=== PATIENT | male | born 1995 | race Caucasian/White ===

== ENCOUNTER 2021-08-19 04:04 | Emergency (ER) | payer OTHER, SELFPAY ==
[2021-08-19 04:06] VITALS: BP 165/106; PULSE 120; RESP 29; TEMP 36; O2SAT 100; BMI 32.5
--- NOTE | 2021-08-19 04:12 | RAD_ITS ---
STUDY: X-RAY CHEST REASON FOR EXAM: Male, 25 years old. Left-sided chest pain TECHNIQUE: PA and lateral views of the chest. COMPARISON: None. FINDINGS: The lungs are clear and expanded. There is no demonstrated pleural abnormality. Normal size heart. Normal mediastinum and cole. Normal visualized pulmonary arteries. Normal visualized aortic arch and descending thoracic aorta. Normal visualized thoracic spine. Normal visualized ribs, clavicles, and shoulders. There is no demonstrated abnormality of the visualized soft tissue structures of the upper abdomen. RAD/Chest PA and Lateral IMPRESSION: Normal x-ray examination of the chest. Electronically Signed: Melquiades Perdue MD at 4:43 EDT Tel , Service support ,
--- NOTE | 2021-08-19 04:12 | EKG12_ITS ---
Test Reason : REPEAT CP Blood Pressure : / mmHG Vent. Rate : 076 BPM Atrial Rate : 076 BPM P-R Int : 116 ms QRS Dur : 104 ms QT Int : 384 ms P-R-T Axes : 018 035 -01 degrees QTc Int : 432 ms Normal sinus rhythm Nonspecific ST and T wave abnormality Abnormal ECG Confirmed by JOVANY CHINCHILLA, ALEXANDRO ([id number]), publishing editor PERRY SHAH ([id number]) on 08/20/2021 8:59:32 AM Referred By: MARY Confirmed By:ALEXANDRO MANZO MD
--- NOTE | 2021-08-19 04:13 | EX.ED.DYSGE1 ---
HPI History of Present Illness Chief Complaint: Chest Pain Detail of Chief Complaint: Transient left-sided chest pain x2 at rest Informant: patient Onset/Context/Timing Onset: Hours Context: Sudden Onset Timing: Intermittent (Seconds) Quality: Sharp Location: Left parasternal Current Severity: Gone Maximum Severity: Moderate Worsened by: Nothing Relieved by: Nothing Associated Symptoms Associated Symptoms: Shortness of breath only no radiation Narrative Narrative: Patient is a 25-year-old male with history of environmental allergies who presents because he had to transient episodes of left parasternal discomfort described as sharp. He did report shortness of breath. When asked if he is nervous he acknowledges yes. He does have allergy type symptoms with postnasal drainage. He does take allergy medication. He denies fever, chills night sweats. He denies sore throat. He denies ocular, visual auditory symptoms. He occasionally have a cough which he attributes to his allergies. He denies GI symptoms. He denies leg pain, swelling discoloration. Since he has been doing high intensity workout he is complained of shortness of breath during activity. He has had no other symptoms. Prior similar symptoms: No Recent Illness/Hospitalization: No PFSH PFS Medical History (Updated 08/19/21 @ 07:[address] Pawel Vickers MD) ACL injury tear Environmental allergies Scoliosis Home Medications Kari Allergy 60 mg PO/SL DAILY 08/19/21 [History Last Taken Unknown] Nasal Allergy PRN 08/19/21 [History Last Taken Unknown] albuterol PRN 08/19/21 [History Last Taken Unknown] Allergy/AdvReac Type Severity Reaction Status Date / Time Penicillins AdvReac Rash Verified 08/19/21 04:20 Family History no significant family his no significant family history Surgical History no surgical history no surgical history Social History (Updated 08/19/21 @ 04:[address] Pawel Vickers MD) household members: none Smoking Status: Never smoker alcohol intake: never substance use type: does not use ROS ROS ED Constitutional Constitutional ED: Denies chills, fever(s), subjective, sweats or weight loss Eyes Eyes: Denies blurry vision, change in vision or diplopia ENT ENT ED: Denies ear pain, rhinorrhea or sore throat Cardiovascular Cardiovascular: Reports chest pain; Denies orthopnea, palpitations, paroxysmal nocturnal dyspnea or racing heartbeat Respiratory/Chest Respiratory/Chest: Reports cough; Denies dyspnea, dyspnea on exertion, orthopnea, paroxysmal nocturnal dyspnea or sputum Gastrointestinal Gastrointestinal: Denies abdominal pain, diarrhea, melena, nausea or vomiting Musculoskeletal Musculoskeletal: Denies arthralgias, back pain, myalgias or neck pain Integumentary Denies rash Neurologic Neurologic: Denies paresthesias or weakness Psychiatric Psychiatric: Reports anxiety Hematologic/Lymphatic Hematologic/Lymphatic: Denies easy bleeding or easy bruising EXAM Physical Exam Const Vital Signs: 08/19/21 04:06 08/19/21 05:54 Temperature 96.8 F L Temperature Source Temporal Pulse Rate 120 H 77 Respiratory Rate 29 H 13 Blood Pressure 165/106 H 128/72 H Blood Pressure Mean 125 90 Pulse Ox 100 98 Oxygen Delivery Method Room Air Room Air Positive well nourished, well developed and obese General Appearance ED: well developed and NAD; Negative for pallor Nutritional Appearance: obese HEENT Reports TM's clear HEENT Narrative: Head is atraumatic normocephalic. Ears are normal. Tympanic Membrane ED: Yes TM's clear Eyes PERRL and EOMs intact bilaterally General Eye ED: Negative for pale conjunctiva or scleral icterus Neck no lymphadenopathy, supple and no JVD Resp normal respiratory effort and clear to auscultation bilaterally Effort and Inspection: Negative for pain with movement Auscultation: Negative for diminished lung sounds Cardio regular rhythm, S1 normal heart sound, S2 normal heart sound and no murmurs Rate: tachycardic GI normal to inspection, nondistended, normoactive bowel sounds, non-tender and non-distended Auscultation: normoactive bowel sounds Palpation: soft Back/Spine no CVA tenderness Extremity normal to inspection Extremity Narrative: There is no asymmetry, swelling, discoloration, leg vein distention, palpable cords or tenderness along the distribution of the deep venous system. Neuro oriented x3 and CN's II-XII intact bilaterally Sensorium / Orientation: alert Motor Exam: strength 5/5 throughout Psych mental status grossly normal Skin no rashes or lesions noted and no wounds General Skin Exam: elasticity normal; Negative for jaundice or pallor MDM MDM MDM Narrative Medical decision making narrative: Patient with atypical chest pain. Vitals are remarkable a blood pressure, tachycardia and tachypnea. Patient is not PERC negative. To evaluate his chest discomfort and dyspnea chest x-ray was obtained to evaluate for pulmonary etiology. CBC to rule out anemia. Basic metabolic panel in the event that a CTA as needed. D-dimer since he is not PERC negative. EKG was obtained since monitor reveals prominent QRS with ST depression which may represent repolarization changes from LVH. Repeat EKG revealed normalization of the flipped T waves. Suspect the flipped T waves are due to hyperventilation since he is no longer hyperventilating. The D-dimer was negative. First troponin was 7-second troponin was 7 based on algorithm negative predictive value is 100%. Patient was informed that there are no serious ailments causing his symptoms. Suspect there is a slight anxiety component. He acknowledged there may have been. Lab Data Labs: Laboratory Results - last 24 hr 08/19/21 08/19/21 08/19/21 04:25 04:25 04:25 WBC 8.0 RBC 5.23 Hgb 15.9 Hct 47.5 MCV 90.8 MCH 30.4 MCHC 33.5 RDW Std Deviation 38.6 RDW Coeff of [place] 11.6 Plt Count 311 MPV 10.1 Immature Gran % (Auto) 0.300 Neut % (Auto) 45.4 L Lymph % (Auto) 37.8 [place] % (Auto) 12.6 H Eos % (Auto) 3.0 Baso % (Auto) 0.9 Absolute Neuts (auto) 3.6 Absolute Lymphs (auto) 3.02 Nucleated RBC % 0 D-Dimer Quant (PE/DVT) <= 0.27 Sodium 141 Potassium 3.9 Chloride 107 Carbon Dioxide 27.0 Anion Gap 7 BUN 14 Creatinine 1.01 Estim Creat Clear Calc 113.44 Est GFR (MDRD) Af Amer 113 Est GFR (MDRD) Non-Af 94 BUN/Creatinine Ratio 13.9 Glucose 113 H Calcium 9.0 Troponin I High Sens 08/19/21 08/19/21 04:25 06:20 WBC RBC Hgb Hct MCV MCH MCHC RDW Std Deviation RDW Coeff of [place] Plt Count MPV Immature Gran % (Auto) Neut % (Auto) Lymph % (Auto) [place] % (Auto) Eos % (Auto) Baso % (Auto) Absolute Neuts (auto) Absolute Lymphs (auto) Nucleated RBC % D-Dimer Quant (PE/DVT) Sodium Potassium Chloride Carbon Dioxide Anion Gap BUN Creatinine Estim Creat Clear Calc Est GFR (MDRD) Af Amer Est GFR (MDRD) Non-Af BUN/Creatinine Ratio Glucose Calcium Troponin I High Sens 7 7 Radiography Chest X-Ray - ED: 2 View, Read by ED Physician (Interpreted by me at [id number]), Normal, Heart, Lungs, Mediastinum, Bony Structures and No Acute Disease Diagnostic Testing: Clinical Impression(s) from Imaging Studies Chest X-Ray 08/19/21 04:12 IMPRESSION: Normal x-ray examination of the chest. Electronically Signed: Melquiades Perdue MD at 4:43 EDT Tel , Service support , EKG Initial EKG: Attestation: I personally reviewed and interpreted this EKG as follows: Interpretation: Sinus Tachycardia (Ventricular rate is 101. [place] interval is 92 ms. Cures duration 92 ms QT duration 316 ms. Agency is normal. There is evidence of flipped T waves in the inferolateral leads which may represent ischemia. There is no ST depression pression and there is no ST elevation noted.) Prior: No Prior Follow-up EKG: Attestation: I personally reviewed and interpreted this EKG as follows: Interpretation: Sinus Rhythm (Ventricular rate is 76. [place] interval 216 ms. Cures duration under 4 ms. QT duration 384 ms. Agency is normal. The inverted T waves have resolved. Suspect the inverted T waves noted on the first EKG were due to hyperventilation.) and No Acute Injury Pattern Discharge Plan Triage Chief Complaint: Chest Pain ED Provider: Pawel Vickers Dx/Rx/DC Orders Clinical Impression: Chest pain of unknown etiology, Acute dyspnea, Acute hyperventilation, Sinus tachycardia Instructions: ED Chest Pain, Noncardiac, ED Hyperventilation Syndrome, ED Pain, Acute, Uncertain Cause Prescriptions: No Action Kari Allergy 60 mg PO/SL DAILY RF: 0 Nasal Allergy PRN (Reason: Allergy Symptoms) RF: 0 albuterol PRN (Reason: Respiratory Distress) RF: 0 Primary Care Provider: Care Physician,No Primary Referrals: Lenny Florentino MD [STAFF PHYSICIAN] - 1-2 Weeks Care Physician,No Primary [Primary Care Provider] - Disposition Disposition: Home, Self Care
[2021-08-19 04:31] LABS: Absolute Lymphocyte Count 3.02 X10^3/uL (0.83-4.51); Absolute Neutrophil Count 3.6 X10^3/uL (2.0-7.7); Basophil# 0.07 X10^3/uL; Basophil% 0.9 % (0-1); Eosinophil# 0.24 X10^3/uL; Hematocrit 47.5 % (40-54); Hemoglobin 15.9 g/dL (13.0-16.5); Lymphocyte # 3.02 X10^3/ul (0.83-4.51); Lymphocyte % 37.8 % (19-41); Mean Corp Hgb Conc 33.5 g/dL (32-36); Mean Corpuscular Hgb 30.4 pg (27.0-32.0); Mean Corpuscular Volume 90.8 fL (80-94); Mean Platelet Vol. 10.1 fl (6.2-12.0); Monocyte# 1.01 X10^3/uL; Monocyte% 12.6 % (0-10); NRBC Flagged by Analyzer 0 % (0-5); Neutrophil # 3.63 X10^3/uL (2.7-7.7); Neutrophil % 45.4 % (47-70); Platelet Count 311 K/mm3 (150-450); RBC Distribution Width CV 11.6 % (11.6-14.6); RBC Distribution Width SD 38.6 fl (35.1-43.9); Red Blood Count 5.23 M/mm3 (4.6-6.2)
[2021-08-19 04:44] LABS: Anion Gap 7 (5-15); BUN 14 mg/dL (7-18); BUN/Creat Ratio 13.9 RATIO (10-20); Chloride 107 mmol/L (98-107); Creatinine, Serum 1.01 mg/dL (0.70-1.30); EST Glomerular Filtration Rate 94 mL/min (>60); Est Glom Filt Rate - Afr Amer 113 mL/min (>60); Estimated Creatinine Clearance 113.44 ml/min; Glucose 113 mg/dL (74-106); Potassium 3.9 mmol/L (3.5-5.1); Sodium Level 141 mmol/L (136-145)
[2021-08-19 05:03] LABS: D-Dimer Quantitative (DVT/PE) <= 0.27 FEU/ug/m (0.27-0.49)
[2021-08-19 05:25] LABS: Troponin-I HS 7 pg/mL (3.0-78.0)
--- NOTE | 2021-08-19 05:36 | EKG12_ITS ---
Test Reason : CP Blood Pressure : / mmHG Vent. Rate : 101 BPM Atrial Rate : 101 BPM P-R Int : 092 ms QRS Dur : 092 ms QT Int : 316 ms P-R-T Axes : 046 039 -29 degrees QTc Int : 409 ms Sinus tachycardia with short [place] T wave abnormality, consider inferolateral ischemia Abnormal ECG Confirmed by JOVANY CHINCHILLA, ALEXANDRO ([id number]), digital editor PERRY SHAH ([id number]) on 08/20/2021 9:00:05 AM Referred By: MARY Confirmed By:ALEXANDRO MANZO MD
[2021-08-19 05:54] VITALS: BP 128/72; PULSE 77; RESP 13; O2SAT 98
[2021-08-19 06:43] LABS: Troponin-I HS 7 pg/mL (3.0-78.0)
[2021-08-19 07:12] VITALS: BP 111/75; PULSE 64; RESP 13; O2SAT 97
== END 2021-08-19 07:18 | disposition home or self-care (01) ==
PROVIDERS: Emergency Provider Emergency Medicine
DX: R07.9 Chest pain, unspecified (principal); R06.4 Hyperventilation; R00.0 Tachycardia, unspecified; R06.00 Dyspnea, unspecified; E66.9 Obesity, unspecified; Z68.32 Body mass index [BMI] 32.0-32.9, adult; M41.9 Scoliosis, unspecified
CPT/HCPCS: 71046; 80048; 84484; 85025; 85379; 93005; 99285; A4216